=== PATIENT | female | born 1995 | race American Indian/Alaskan Native ===

== ENCOUNTER 2022-01-22 20:23 | Emergency (ER) | payer SELFPAY ==
[2022-01-23 02:11] VITALS: BP 118/78
[2022-01-23] MEDS ORDERED: HYDROcodone/ACETAMINOPHEN 5-325 MG TAB PO ONE (03:01)
--- NOTE | 2022-01-23 03:04 | Emergency Department Report ---
ED General Adult HPI - General Chief complaint: Headache Stated complaint: MIRGAINES Time Seen by Provider: 01/23/22 02:31 Source: patient Mode of arrival: Ambulatory Limitations: No Limitations - History of Present Illness Initial comments: 26-year-old female with no significant past medical history reports to the ER with headache to the temporal side for 1 week intermittently. Patient reports taking [id number] medication with slight relief. Patient reports her pain is currently 6 out of 10. Patient denies any dizziness, weakness, numbness. No other acute symptoms reported. - Related Data Previous Rx's Medication Instructions Recorded Last Taken Type Ibuprofen [Motrin] 800 mg PO Q8HR PRN 4 Days #12 01/23/22 Unknown Rx tablet Allergies Allergy/AdvReac Type Severity Reaction Status Date / Time No Known Allergies Allergy Unverified 01/22/22 21:57 ED Review of Systems ROS: Stated complaint: MIRGAINES Other details as noted in HPI Comment: All other systems reviewed and negative Neurological: headache. denies: weakness, numbness ED Past Medical Hx - Past Medical History Previous Medical History?: No - Medications Home Medications: Home Medications Medication Instructions Recorded Confirmed Last Taken Type Ibuprofen [Motrin] 800 mg PO Q8HR PRN 4 Days #12 01/23/22 Unknown Rx tablet ED Physical Exam - General Limitations: No Limitations General appearance: alert, in no apparent distress - Head Head exam: Present: atraumatic, normocephalic - Eye Eye exam: Present: normal appearance - ENT ENT exam: Present: mucous membranes moist - Neck Neck exam: Present: normal inspection - Respiratory Respiratory exam: Present: normal lung sounds bilaterally. Absent: respiratory distress - Cardiovascular Cardiovascular Exam: Present: regular rate, normal rhythm. Absent: systolic murmur, diastolic murmur, rubs, gallop - GI/Abdominal GI/Abdominal exam: Present: soft, normal bowel sounds - Extremities Exam Extremities exam: Present: normal inspection - Back Exam Back exam: Present: normal inspection - Neurological Exam Neurological exam: Present: alert, oriented X3, normal gait, other (No acute neurological findings.) - Psychiatric Psychiatric exam: Present: normal affect, normal mood - Skin Skin exam: Present: warm, dry, intact, normal color. Absent: rash ED Course Vital Signs 01/22/22 01/23/22 21:54 02:10 Temperature 98.7 F Pulse Rate 99 H 83 Respiratory 18 14 Rate Blood Pressure 124/72 118/78 [Right] O2 Sat by Pulse 98 100 Oximetry ED Medical Decision Making - Medical Decision Making 26-year-old female headache for 1 week with no nausea no vomiting no diarrhea no dizziness no weakness. No acute clinical findings on physical exam. Neurologically intact. Patient received oral medication for pain here in ER for headache. . Patient safe for discharge home with follow her primary care provider as needed. Patient informed if symptoms are to get worse to report to ER for further evaluation. Patient agrees with plan of care and verbalized understanding. Vital Signs 01/22/22 01/23/22 21:54 02:10 Temperature 98.7 F Pulse Rate 99 H 83 Respiratory 18 14 Rate Blood Pressure 124/72 118/78 [Right] O2 Sat by Pulse 98 100 Oximetry Critical care attestation.: If time is entered above; I have spent that time in minutes in the direct care of this critically ill patient, excluding procedure time. ED Disposition Clinical Impression: Headache Qualifiers: Headache type: tension-type Headache chronicity pattern: acute headache Intractability: not intractable Qualified Code(s): G44.209 - Tension-type headache, unspecified, not intractable Disposition: 01 HOME / SELF CARE / HOMELESS Is pt being admited?: No Condition: Stable Instructions: General Headache Without Cause, Tension Headache, Adult, [id number] Prescriptions: Ibuprofen [Motrin] 800 mg PO Q8HR PRN 4 Days #12 tablet PRN Reason: Pain , Severe (7-10) Referrals: BENTLEY HUNT MD [Staff Physician] - 3-5 Days
== END 2022-01-23 03:15 | disposition home or self-care (01) ==
LOC: ED 20:23
DX: R51.9 Headache, unspecified (principal); Z79.899 Other long term (current) drug therapy
CPT/HCPCS: 99282